=== PATIENT | male | born 1965 | race Caucasian/White ===

== ENCOUNTER 2019-09-28 09:45 | Outpatient (CLI) | payer MEDICARE, SELFPAY ==
[2019-09-28 10:55] LABS: Influenza Control Valid (Valid)
== END 2019-09-28 09:46 | disposition home or self-care (01) ==
PROVIDERS: PCP Family Medicine; Visit Provider Family Medicine
DX: J06.9 Acute upper respiratory infection, unspecified (principal)
CPT/HCPCS: 87081; 87804; 87880

== ENCOUNTER 2020-01-22 08:00 | Outpatient (CLI) | payer MEDICARE, SELFPAY ==
[2020-01-22 08:11] LABS: Basophils Absolute Auto 0.03 K/mm3 (0.00-0.10); Basophils Percent Auto 0.4 % (0.0-1.0); Eosinophils Absolute Auto 0.19 K/mm3 (0.02-0.50); Eosinophils Percent Auto 2.3 % (1.0-6.0); Hematocrit 41.5 % (40.0-54.0); Hemoglobin 13.7 g/dL (14.0-18.0); Immature Granulocyte Absolute 0.05 K/mm3 (0.00-0.00); Immature Granulocyte Percent A 0.6 % (0.0-0.0); Lymphocytes Absolute Auto 1.67 K/mm3 (1.10-4.50); Lymphocytes Percent Auto 20.3 % (18.0-42.0); Mean Corpuscular Hemoglobin 26.6 pg (27.0-31.0); Mean Corpuscular Volume 80.4 fL (78.0-102.0); Mean Platelet Volume 10.1 fl (8.7-11.0); Monocytes Absolute Auto 0.88 K/mm3 (0.10-0.90); Monocytes Percent Auto 10.7 % (2.0-11.0); Neutrophils Absolute Auto 5.4 K/mm3 (1.7-7.2); Neutrophils Percent Auto 65.7 % (50.0-70.0); Platelet Count Result 295 K/mm3 (150-420); Red Blood Count 5.16 M/mm3 (4.70-6.10); Red Cell Distribution Width 15.7 % (11.6-14.4); White Blood Count 8.2 K/mm3 (4.8-10.8)
[2020-01-22 09:05] LABS: Hemoglobin A1C 6.7 % (<5.7)
[2020-01-22 09:19] LABS: Anion Gap 10.7 mmol/L (7-16); Blood Urea Nitrogen 8 mg/dL (7-18); Carbon Dioxide 32 mmol/L (21-32); Chloride 102 mmol/L (98-108); Estimated Glomerular Filt Rate > 60; Glucose 123 mg/dL (70-99); Osmolality Calculated 291 mOsm/kg (285-295); Potassium 3.7 mmol/L (3.5-5.1); Sodium 141 mmol/L (136-145)
== END 2020-01-22 08:01 | disposition home or self-care (01) ==
PROVIDERS: PCP Family Medicine; Visit Provider Family Medicine
DX: I10 Essential (primary) hypertension (principal); E11.319 Type 2 diabetes mellitus with unspecified diabetic retinopathy without macular edema
CPT/HCPCS: 36415; 80048; 83036; 85025

== ENCOUNTER 2022-07-11 15:25 | Outpatient (CLI) | payer MEDICARE, SELFPAY ==
[2022-07-11 16:28] LABS: SARS-CoV-2 RNA PCR Negative (Negative)
== END 2022-07-11 15:26 | disposition home or self-care (01) ==
LOC: CHSLAB 15:31
PROVIDERS: PCP Internal Medicine; Visit Provider Family Medicine
DX: Z20.822 Contact with and (suspected) exposure to COVID-19 (principal)
CPT/HCPCS: U0003; U0005

== ENCOUNTER 2022-08-19 09:16 | Outpatient (CLI) | payer MEDICARE, SELFPAY ==
[2022-08-19 09:35] LABS: Basophils Absolute Auto 0.04 K/mm3 (0.00-0.10); Basophils Percent Auto 0.4 % (0.0-1.0); Eosinophils Absolute Auto 0.18 K/mm3 (0.02-0.50); Eosinophils Percent Auto 1.6 % (1.0-6.0); Hemoglobin 12.9 g/dL (14.0-18.0); Immature Granulocyte Absolute 0.05 K/mm3 (0.00-0.00); Immature Granulocyte Percent A 0.4 % (0.0-0.0); Lymphocytes Absolute Auto 1.75 K/mm3 (1.10-4.50); Lymphocytes Percent Auto 15.4 % (18.0-42.0); Mean Corpuscular HGB Conc 33.9 g/dL (32.0-36.0); Mean Corpuscular Hemoglobin 27.3 pg (27.0-31.0); Mean Corpuscular Volume 80.3 fL (78.0-102.0); Mean Platelet Volume 9.2 fl (8.7-11.0); Monocytes Absolute Auto 1.29 K/mm3 (0.10-0.90); Monocytes Percent Auto 11.3 % (2.0-11.0); Neutrophils Absolute Auto 8.1 K/mm3 (1.7-7.2); Neutrophils Percent Auto 70.9 % (50.0-70.0); Platelet Count Result 338 K/mm3 (150-420); Red Blood Count 4.73 M/mm3 (4.70-6.10); Red Cell Distribution Width 13.5 % (11.6-14.4); White Blood Count 11.4 K/mm3 (4.8-10.8)
[2022-08-19 09:48] LABS: Hemoglobin A1C 6.2 % (<5.7)
[2022-08-19 10:13] LABS: Alanine Aminotransferase 32 U/L (16-63); Albumin Level 3.8 g/dL (3.4-5.0); Alkaline Phosphatase 106 U/L (46-116); Anion Gap 7 mmol/L (8-16); Aspartate Amino Transferase 12 U/L (15-37); Bilirubin,Total 0.4 mg/dL (0.00-1.00); Blood Urea Nitrogen 7 mg/dL (7-18); Carbon Dioxide 30 mmol/L (21-32); Chloride 92 mmol/L (98-108); Cholesterol 63 mg/dL (0-200); Estimated Glomerular Filt Rate > 60; Glucose 125 mg/dL (70-99); HDL Direct 35 mg/dL (40-60); LDL Cholesterol Calculated 15 mg/dL (<130); Osmolality Calculated 267 mOsm/kg (285-295); Potassium 3.7 mmol/L (3.5-5.1); Sodium 129 mmol/L (136-145); Thyroid Stimulating Hormone 0.68 uIU/mL (0.36-3.74); Total Protein 7.4 g/dL (6.4-8.2); Triglycerides 65 mg/dL (0-150)
[2022-08-19 14:01] LABS: Add Urine Microscopic? YES; Appearance Urine Clear (Clear); Bilirubin Urine Negative (Negative); Blood Urine Negative (Negative); Color Urine Light Yellow (Yellow); Glucose Urine UA Negative (Negative); Ketones Urine Negative (Negative); Leukocyte Esterase Ur 2+ (Negative); Nitrate Urine Negative (Negative); Protein Urine Negative (Negative); Urobilinogen Urine 0.2 mg/dL (0.2-1.0)
[2022-08-19 14:15] LABS: Creatinine Urine 18.61 mg/dL (40-278); MALB Creatinine Ratio 69.8 mg/g (0-30); Microalbumin Urine Random < 13.0 mg/L
[2022-08-19 14:22] LABS: Bacteria Urine Trace /hpf; RBC Urine None seen /hpf (0-2); Squamous Epithelial Cell Urine Rare /hpf (Few)
== END 2022-08-19 09:17 | disposition home or self-care (01) ==
LOC: CHSLAB 09:18
PROVIDERS: PCP Family Medicine; Visit Provider Family Medicine
DX: I10 Essential (primary) hypertension (principal); E11.9 Type 2 diabetes mellitus without complications; E78.5 Hyperlipidemia, unspecified
CPT/HCPCS: 36415; 80053; 80061; 81001; 82043; 83036; 84443; 85025

== ENCOUNTER 2024-07-21 08:21 | Emergency (ER) | payer MEDICARE, MEDICAID, SELFPAY ==
[2024-07-21] VITALS (31 sets, daily range): BP systolic 102–132; BP diastolic 54–83; PULSE 67–86; RESP 15–18; TEMP 36.4–36.8; O2SAT 95–100
--- NOTE | ~2024-07-21 | CT_ITS ---
EXAMINATION: CT brain wo con DATE: 07/21/2024 09:22 INDICATION: Dizziness. Fall. TECHNIQUE: Computed tomography (CT) of the head was performed without intravenous contrast. The mA wa s adjusted according to patient size. Iterative reconstruction technique was employed. The dose-lengt h product was 681.00 mGy-cm. COMPARISON: None FINDINGS: There are scattered areas of low attenuation in the cerebral white matter, which is within normal limits for the patient's age. There is no intracranial hemorrhage, acute infarction, or abnorm al intracranial mass lesion. The ventricles are normal in size. There is mild mucosal thickening in t he paranasal sinuses. There are likely changes of ocular lens replacement surgeries. The mastoid air cells are normal. IMPRESSION: 1. Normal aging brain. Reviewed, dictated and finalized at location A. L CLEANER IMPRESSION: 1. Normal aging brain.
--- NOTE | 2024-07-21 08:29 | ED_ITS ---
HPI - Fall General Chief Complaint: Fall Stated Complaint: fall Time Seen by Provider: 07/21/24 08:29 Source: patient and EMS Mode of arrival: EMS Limitations: other (Patient has baseline MR) History of Present Illness HPI Narrative: patient is a 59-year-old male from a senior care with MR was having a bowel movement and got up and became dizzy and fell. No injuries. No chest pain or shortness of breath. No symptoms before the event. MD complaint: fall Onset (ago): hour(s) (1) Fall from: standing Fall witnessed: no Place fall occurred: home Loss of consciousness: none Prolonged down time: no Symptoms prior to fall: lightheadedness and dizziness Context: other ( Patient fell from standing after bowel movement) Location of injury: other ( none) Severity: mild ( No pain) Severity scale (1-10): 1 ( no pain) Quality: other ( no pain) Associated symptoms (after fall): denies Related Data Home Medications Medication Instructions Recorded Confirmed amlodipine 10 mg tablet 10 mg PO DAILY 07/21/24 07/21/24 ascorbic acid (vitamin C) 500 mg 500 mg PO BID 07/21/24 07/21/24 tablet (Vitamin C) aspirin 81 mg chewable tablet 81 mg PO DAILY 07/21/24 07/21/24 atorvastatin 40 mg tablet 40 mg PO DAILY 07/21/24 07/21/24 lisinopril 20 2 tablet PO DAILY 07/21/24 07/21/24 mg-hydrochlorothiazide 12.5 mg tablet metoprolol tartrate 50 mg tablet 50 mg PO DAILY 07/21/24 07/21/24 risperidone 1 mg tablet 1 mg PO BID 07/21/24 07/21/24 Allergies Allergy/AdvReac Type Severity Reaction Status Date / Time No Known Allergies Allergy Verified 07/21/24 08:23 Review of Systems Review of Systems: All systems reviewed & are unremarkable except as noted in HPI and below Constitutional: Constitutional: Reports no additional constitutional complaints Eyes: Eyes: Reports no additional eye complaints ENT: Reports system reviewed and no additional complaints, except as documented Cardiovascular: Cardiovascular: Reports no additional cardiovascular complaints Respiratory: Respiratory: Reports no additional respiratory complaints Gastrointestinal: Gastrointestinal: Reports no additional gastrointestinal complaints Genitourinary: Genitourinary: Reports no additional male genitourinary complaints Musculoskeletal: Musculoskeletal: Reports no additional musculoskeletal complaints Integumentary/Breasts: Skin/Breast: Reports system reviewed and no additional complaints, except as docu Neurologic: Reports system reviewed and no additional complaints, except as documented Psychiatric: Psychiatric: Reports no additional psychiatric complaints Endocrine: Endocrine: Reports no additional endocrine complaints Hematologic/Lymphatic: Hematologic/Lymphatic: Reports no additional hematologic/lymphatic complaints Allergic/Immunologic: Allergic/Immunologic: Reports no additional all ergic/immunologic complaints Exam Const: General: healthy appearing Nutritional Appearance: well nourished Other: baseline mental MR MIGDALIA: Head: normal to inspection Ears: external ears normal Face/Nose/Sinus: Normal external nose present Face and sinus: normal facial exam Mouth: Yes Normal oral and palatal mucosa present Teeth and gingiva: dentition normal Eyes: Conjunctivae: conjunctivae normal Pupils: Equal, round and reactive pupils present EOM: EOMs intact bilaterally Neck: Neck: normal visual inspection Chest: Chest palpation & inspection: normal inspection of the chest Resp: Effort & Inspection: normal respiratory effort and not labored Auscultation: clear to auscultation bilaterally and no crackles Cardio: Rate: regular rate Rhythm: regular rhythm Heart sounds: no murmurs GI: Inspection: non-distended GI Palp: Yes Soft to palpation and No Tenderness to palpation present (GI) Auscultation: normal bowel sounds : General: Yes bladder normal to palpation Back/Spine/Pelvis: Back: no CVA tenderness Skin: General skin exam: normal color Rashes: no rashes Wounds: no wounds Neuro: General: patient oriented x3 Cranial nerves: Yes Nystagmus not present Speech: normal speech Gait exam (Neuro): Normal gait present Other: fast exam negative, NIH score 0, GCS is 15 orthostatic vital signs do show positivity please see nurse's note for values Extrem: General: normal to inspection Psych: Mental Status: mental status grossly normal Affect: normal affect Attitude: cooperative Course Vital Signs Vital signs: Vital Signs Pulse Rate 70 07/21/24 08:25 Blood Pressure 132/78 07/21/24 08:25 Pulse Rate 86 07/21/24 08:27 Blood Pressure 102/56 L 07/21/24 08:27 MDM - Fall MDM Narrative Medical decision making narrative: patient is a 59-year-old male with MR here with a fall from standing after getting dizzy after using the bathroom for a stool. Orthostatic vital signs were positive for abnormality and likely this was a vasovagal event. I will check an EKG and brief workup. Further workup is not necessary this time. No injuries seem or positive through history. There is no chest pain and I will give him a copy of EKG to bring to the primary doctor. workup was negative. it appears the Haldol is over powering the lesser Cogentin level. We will go ahead and increase his Cogentin to 1 mg twice a day now. He is only on a 0.5 mg at bedtime. Lab Data Attestation: I reviewed the patient's lab results. 07/21/24 09:45 07/21/24 09:45 Labs: Lab Results 07/21/24 Range/Units 09:45 WBC 13.9 H (4.8-10.8) K/mm3 RBC 4.05 L (4.70-6.10) M/mm3 Hgb 10.1 L (14.0-18.0) g/dL Hct 30.9 L (40.0-54.0) % MCV 76.3 L (78.0-102.0) fL MCH 24.9 L (27.0-31.0) pg MCHC 32.7 (32-36) g/dL RDW 16.1 H (11.6-14.4) % Plt Count 304 (150-420) K/mm3 MPV 9.6 (8.7-11.0) fl Immature Gran % (Auto) 0.5 H (0.0-0.0) % Neut % (Auto) 80.6 H (50.0-70.0) % Lymph % (Auto) 10.7 L (18.0-42.0) % [place] % (Auto) 7.8 (2.0-11.0) % Eos % (Auto) 0.2 L (1.0-6.0) % Baso % (Auto) 0.2 (0.0-1.0) % Lymph # (Auto) 1.48 (1.10-4.50) K/mm3 [place] # (Auto) 1.09 H (0.10-0.90) K/mm3 Eos # (Auto) 0.03 (0.02-0.50) K/mm3 Baso # (Auto) 0.03 (0.00-0.10) K/mm3 Abs Immat Gran (auto) 0.07 H (0.00-0.00) K/mm3 Absolute Neuts (auto) 11.19 H (1.70-7.20) K/mm3 Absolute Nucleated RBC 0.00 (0.00-0.00) K/mm3 Nucleated RBC % 0.0 (0-0.0) % Sodium 136 (136-145) mmol/L Potassium 4.1 (3.5-5.1) mmol/L Chloride 99 (98-108) mmol/L Carbon Dioxide 30 (21-32) mmol/L Anion Gap 7 (4-12) mmol/L BUN 22 H (7-18) mg/dL Creatinine 0.78 (0.70-1.30) mg/dL Estim Creat Clear Calc 98 ml/min Estimated GFR > 60 (59 - ) Glucose 166 H (70-99) mg/dL Calculated Osmolality 289 (285-295) mOsm/kg Calcium 9.0 (8.5-10.1) mg/dL Total Bilirubin 0.4 (0.00-1.00) mg/dL AST 13 L (15-37) U/L ALT 31 (16-63) U/L Alkaline Phosphatase 116 (46-116) U/L Troponin I 9.4 (0.00-60.4) ng/L Total Protein 7.5 (6.4-8.2) g/dL Albumin 3.5 (3.4-5.0) g/dL Imaging Data Attestation: I personally reviewed and interpreted this imaging study as follows: Radiologist's impression: CT scan of the brain was negative for acute process ECG Data EKG #1: Attestation: I personally reviewed and interpreted this ECG as follows: ECG completion date: 07/21/24 ECG completion time: 08:59 EKG Interpretation: normal rate, sinus rhythm, no ectopy, non-specific ST changes, normal QRS, normal QT and NL axis Discharge Plan Discharge Clinical Impression: Vasovagal episode Fall Qualifiers: Encounter type: initial encounter Qualified Code(s): W19.XXXA - Unspecified fall, initial encounter Patient Disposition: Home, Self-Care Condition: Stable Instructions: Hypotension (ED) Additional Instructions: Please follow-up with primary doctor in the next week. Please have a primary doctor review the EKG to consider further outpatient workup. Prescriptions: No Action atorvastatin 40 mg tablet 40 mg PO DAILY lisinopril-hydrochlorothiazide 20-12.5 mg tablet 2 tablet PO DAILY ascorbic acid (vitamin C) [Vitamin C] 500 mg tablet 500 mg PO BID amlodipine 10 mg tablet 10 mg PO DAILY metoprolol tartrate 50 mg tablet 50 mg PO DAILY aspirin 81 mg tablet,chewable 81 mg PO DAILY risperidone 1 mg tablet 1 mg PO BID Follow-up/Referrals: Carlos Manuel Mayorga MD [Primary Care Provider] - Time of Disposition: 10:19
--- NOTE | 2024-07-21 08:40 | ECG_ITS ---
Test Date: 2024-07-21 08:54:40 Measurements Intervals [place] Rate: 68 P: 49 SD: 174 QRS: 42 QRSD: 88 T: 33 QT: 388 QTc: 413 Interpretive Statements SINUS RHYTHM No previous ECG available for comparison Electronically Signed On 07-22-2024 20:16:29 [employer]HER[employer] NURSE by Jesse Veras M.D.
[2024-07-21 09:51] LABS: Basophils Absolute Auto 0.03 K/mm3 (0.00-0.10); Basophils Percent Auto 0.2 % (0.0-1.0); Eosinophils Absolute Auto 0.03 K/mm3 (0.02-0.50); Eosinophils Percent Auto 0.2 % (1.0-6.0); Hematocrit 30.9 % (40.0-54.0); Hemoglobin 10.1 g/dL (14.0-18.0); Immature Granulocyte Absolute 0.07 K/mm3 (0.00-0.00); Immature Granulocyte Percent A 0.5 % (0.0-0.0); Lymphocytes Absolute Auto 1.48 K/mm3 (1.10-4.50); Lymphocytes Percent Auto 10.7 % (18.0-42.0); Mean Corpuscular HGB Conc 32.7 g/dL (32-36); Mean Corpuscular Hemoglobin 24.9 pg (27.0-31.0); Mean Corpuscular Volume 76.3 fL (78.0-102.0); Mean Platelet Volume 9.6 fl (8.7-11.0); Monocytes Absolute Auto 1.09 K/mm3 (0.10-0.90); Monocytes Percent Auto 7.8 % (2.0-11.0); Neutrophils Absolute Auto 11.19 K/mm3 (1.70-7.20); Neutrophils Percent Auto 80.6 % (50.0-70.0); Platelet Count Result 304 K/mm3 (150-420); Red Blood Count 4.05 M/mm3 (4.70-6.10); Red Cell Distribution Width 16.1 % (11.6-14.4); White Blood Count 13.9 K/mm3 (4.8-10.8)
[2024-07-21 10:09] LABS: Alanine Aminotransferase 31 U/L (16-63); Albumin Level 3.5 g/dL (3.4-5.0); Alkaline Phosphatase 116 U/L (46-116); Anion Gap 7 mmol/L (4-12); Aspartate Amino Transferase 13 U/L (15-37); Bilirubin,Total 0.4 mg/dL (0.00-1.00); Blood Urea Nitrogen 22 mg/dL (7-18); Carbon Dioxide 30 mmol/L (21-32); Chloride 99 mmol/L (98-108); Estimated CRCL calculation 98 ml/min; Estimated Glomerular Filt Rate > 60; Glucose 166 mg/dL (70-99); Osmolality Calculated 289 mOsm/kg (285-295); Potassium 4.1 mmol/L (3.5-5.1); Sodium 136 mmol/L (136-145); Total Protein 7.5 g/dL (6.4-8.2); Troponin I 9.4 ng/L (0.00-60.4)
--- NOTE | 2024-07-21 10:10 | PC.NURSE ---
Patient taken down to use the bathroom. Blood found in toilet after patient done, ERP made aware.
[2024-07-21 11:07] LABS: Partial Thromboplastin Time 24.8 Sec (23.9-30.70); Prothrombin Time 11.4 Seconds (9.50-12.1)
[2024-07-21] MEDS: PANTOPRAZOLE SODIUM IV 40 MG VIAL 80 MG IV PUSH (12:03)
--- NOTE | 2024-07-21 12:33 | ED_ITS ---
HPI - Extremity Injury (Lower) General Chief Complaint: Fall Stated Complaint: fall Time Seen by Provider: 07/21/24 08:29 Source: patient and EMS Mode of arrival: EMS Limitations: other (Patient has baseline MR) History of Present Illness HPI Narrative: error Severity: mild ( No pain) Related Data Home Medications Medication Instructions Recorded Confirmed amlodipine 10 mg tablet 10 mg PO DAILY 07/21/24 07/21/24 ascorbic acid (vitamin C) 500 mg 500 mg PO BID 07/21/24 07/21/24 tablet (Vitamin C) aspirin 81 mg chewable tablet 81 mg PO DAILY 07/21/24 07/21/24 atorvastatin 40 mg tablet 40 mg PO DAILY 07/21/24 07/21/24 lisinopril 20 2 tablet PO DAILY 07/21/24 07/21/24 mg-hydrochlorothiazide 12.5 mg tablet metoprolol tartrate 50 mg tablet 50 mg PO DAILY 07/21/24 07/21/24 risperidone 1 mg tablet 1 mg PO BID 07/21/24 07/21/24 Allergies Allergy/AdvReac Type Severity Reaction Status Date / Time No Known Allergies Allergy Verified 07/21/24 08:23 Course Vital Signs Vital signs: Vital Signs Temperature 36.6 C 07/21/24 08:21 Pulse Rate 74 07/21/24 08:21 Respiratory Rate 18 07/21/24 08:21 Blood Pressure 120/66 07/21/24 08:21 Pulse Oximetry 98 07/21/24 08:21 Oxygen Delivery Autopap 07/21/24 08:21 Temperature 36.4 C 07/21/24 10:28 Pulse Rate 78 07/21/24 11:30 Respiratory Rate 16 07/21/24 11:30 Blood Pressure 111/54 L 07/21/24 11:30 Pulse Oximetry 97 07/21/24 11:30 Oxygen Delivery Room Air 07/21/24 11:00 MDM - Extremity Injury (Lower) Lab Data 07/21/24 09:45 07/21/24 09:45 Labs: Lab Results 07/21/24 07/21/24 Range/Units 09:45 10:38 WBC 13.9 H (4.8-10.8) K/mm3 RBC 4.05 L (4.70-6.10) M/mm3 Hgb 10.1 L (14.0-18.0) g/dL Hct 30.9 L (40.0-54.0) % MCV 76.3 L (78.0-102.0) fL MCH 24.9 L (27.0-31.0) pg MCHC 32.7 (32-36) g/dL RDW 16.1 H (11.6-14.4) % Plt Count 304 (150-420) K/mm3 MPV 9.6 (8.7-11.0) fl Immature Gran % (Auto) 0.5 H (0.0-0.0) % Neut % (Auto) 80.6 H (50.0-70.0) % Lymph % (Auto) 10.7 L (18.0-42.0) % [place] % (Auto) 7.8 (2.0-11.0) % Eos % (Auto) 0.2 L (1.0-6.0) % Baso % (Auto) 0.2 (0.0-1.0) % Lymph # (Auto) 1.48 (1.10-4.50) K/mm3 [place] # (Auto) 1.09 H (0.10-0.90) K/mm3 Eos # (Auto) 0.03 (0.02-0.50) K/mm3 Baso # (Auto) 0.03 (0.00-0.10) K/mm3 Abs Immat Gran (auto) 0.07 H (0.00-0.00) K/mm3 Absolute Neuts (auto) 11.19 H (1.70-7.20) K/mm3 Absolute Nucleated RBC 0.00 (0.00-0.00) K/mm3 Nucleated RBC % 0.0 (0-0.0) % PT 11.4 (9.50-12.1) Seconds INR 1.0 APTT 24.8 (23.9-30.70) Sec Sodium 136 (136-145) mmol/L Potassium 4.1 (3.5-5.1) mmol/L Chloride 99 (98-108) mmol/L Carbon Dioxide 30 (21-32) mmol/L Anion Gap 7 (4-12) mmol/L BUN 22 H (7-18) mg/dL Creatinine 0.78 (0.70-1.30) mg/dL Estim Creat Clear Calc 98 ml/min Estimated GFR > 60 (59 - ) Glucose 166 H (70-99) mg/dL Calculated Osmolality 289 (285-295) mOsm/kg Calcium 9.0 (8.5-10.1) mg/dL Total Bilirubin 0.4 (0.00-1.00) mg/dL AST 13 L (15-37) U/L ALT 31 (16-63) U/L Alkaline Phosphatase 116 (46-116) U/L Troponin I 9.4 (0.00-60.4) ng/L Total Protein 7.5 (6.4-8.2) g/dL Albumin 3.5 (3.4-5.0) g/dL Discharge Plan Discharge Clinical Impression: Acute GI bleeding, Vasovagal episode Fall Qualifiers: Encounter type: initial encounter Qualified Code(s): W19.XXXA - Unspecified f all, initial encounter Patient Disposition: Acute Care Hospital Condition: Stable Prescriptions: No Action atorvastatin 40 mg tablet 40 mg PO DAILY lisinopril-hydrochlorothiazide 20-12.5 mg tablet 2 tablet PO DAILY ascorbic acid (vitamin C) [Vitamin C] 500 mg tablet 500 mg PO BID amlodipine 10 mg tablet 10 mg PO DAILY metoprolol tartrate 50 mg tablet 50 mg PO DAILY aspirin 81 mg tablet,chewable 81 mg PO DAILY risperidone 1 mg tablet 1 mg PO BID Follow-up/Referrals: Carlos Manuel Mayorga MD [Primary Care Provider] -
== END 2024-07-21 13:55 | disposition short-term general hospital (02) ==
PROVIDERS: Emergency Provider Emergency Medicine; PCP Family Medicine
DX: R55 Syncope and collapse (principal); K92.1 Melena; Z79.899 Other long term (current) drug therapy; Z79.82 Long term (current) use of aspirin; W19.XXXA Unspecified fall, initial encounter
CPT/HCPCS: 36415; 70450; 80053; 84484; 85025; 85610; 85730; 93005; 96374; 99285; J2470

== ENCOUNTER 2025-07-17 10:49 | Outpatient (CLI) | payer MEDICARE, MEDICAID, SELFPAY ==
[2025-07-17 11:06] LABS: Hematocrit 45.5 % (40.0-54.0); Hemoglobin 15.4 g/dL (14.0-18.0); Immature Granulocyte Percent A 0.6 % (0.0-0.0); Lymphocytes Absolute Auto 1.90 K/mm3 (1.10-4.50); Mean Corpuscular HGB Conc 33.8 g/dL (32-36); Mean Corpuscular Hemoglobin 29.8 pg (27.0-31.0); Mean Corpuscular Volume 88.2 fL (78.0-102.0); Nucleated Red Blood Cells Absolute Auto 0.00 K/mm3 (0.00-0.00); Nucleated Red Blood Cells Perc 0.0 % (0-0.0); Platelet Count Result 229 K/mm3 (150-420); Red Blood Count 5.16 M/mm3 (4.70-6.10); White Blood Count 9.9 K/mm3 (4.8-10.8)
[2025-07-17 11:24] LABS: Hemoglobin A1C 5.8 % (<5.7)
[2025-07-17 11:29] LABS: Iron 120 ug/dL (49-181)
[2025-07-17 11:30] LABS: Alanine Aminotransferase 52 U/L (6-50); Albumin Level 4.5 g/dL (3.5-5.1); Alkaline Phosphatase 99 U/L (38-126); Anion Gap 8 mmol/L (4-12); Aspartate Amino Transferase 30 U/L (17-59); Bilirubin,Total 0.4 mg/dL (0.2-1.3); Blood Urea Nitrogen 12 mg/dL (9-20); Calcium 9.2 mg/dL (8.4-10.2); Carbon Dioxide 31 mmol/L (22-30); Chloride 104 mmol/L (98-107); Cholesterol 85 mg/dL (0-200); Estimated Glomerular Filt Rate > 60; Glucose 103 mg/dL (65-110); HDL Direct 36 mg/dL; Osmolality Calculated 295 mOsm/kg (285-295); Potassium 4.0 mmol/L (3.4-5.0); Sodium 143 mmol/L (137-145); Total Protein 7.3 g/dL (6.3-8.2); Triglycerides 130 mg/dL (<150)
[2025-07-17 11:39] LABS: Percent Iron Saturation 42 % (20-50)
[2025-07-17 12:06] LABS: Ferritin 28.40 ng/mL (11.1-264)
--- OUTSIDE RECORDS SUMMARY | 2025-07-17 12:10 | XMS_ITS | Patient Health Record ---
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 Name Role Phone Gabi Soni Unavailable [phone] Reason For Referral No Information Medications Medication SIG (Take, Route, Frequency, Duration) Notes Start Date End Date Status risperiDONE 1 MG Tablet Oral 11/04/2022 Active risperiDONE 0.5 MG Tablet Oral 11/04/2022 Active RisperDAL 1 MG Tablet Oral 11/04/2022 Active RisperDAL 0.5 MG Tablet Oral 11/04/2022 Active Metoprolol Tartrate 50 MG Tablet Oral 11/04/2022 Active Ofloxacin 0.30% Solution Ophthalmic 11/04/2022 Active Ketorolac Tromethamine 0.5 % Solution Ophthalmic 11/04/2022 Active prednisoLONE Acetate 1 % Suspension Ophthalmic 11/04/2022 Active Vitamin C 500 mg Tablet Oral 11/04/2022 Active amLODIPine Besylate 10 MG Tablet Oral 11/04/2022 Active metFORMIN HCl 500 MG Tablet Oral 11/04/2022 Active Acetaminophen 325 MG Tablet Oral 11/04/2022 Active Stomach Relief 262 mg/15 mL Suspension Oral 11/04/2022 Active Atorvastatin Calcium 40 MG Tablet Oral 11/04/2022 Active Aspirin 81 MG Tablet Chewable Oral 11/04/2022 Active Lisinopril-hydroCHLOROthiazi de 20-12.5 MG Tablet Oral 11/04/2022 Active Immunizations Vaccine Route Administration Date Status Comme nts Influenza virus vaccine, quadrivalent (IIV4), split virus, 0.25 mL dosage Unknown 05/29/2018 Administered Social History Social History Additional Details Category Social Info Options Details Migrated Social History Migrated Social History Alcohol Intake: None 08/28/2018,Tobacco Years: Never smoker 07/16/2018 Plan Of Treatment No Information Insurance Providers Payer Name Payer Address Payer Phone Subscriber Number Group Number Insured Name Patient Relationship to Insured Coverage Start Date Coverage End Date Medicare-I l Medicare [address] [place] [phone] [id number] LEFTY LOPEZ Self - patient is the insured [place] Medicaid [address] [address] [place] [address] [id number] LEFTY LOPEZ Self - patient is the insured
== END 2025-07-17 10:50 | disposition home or self-care (01) ==
PROVIDERS: PCP Family Medicine; Visit Provider Family Medicine
DX: I10 Essential (primary) hypertension (principal); E11.9 Type 2 diabetes mellitus without complications; D64.9 Anemia, unspecified; E61.1 Iron deficiency; E78.2 Mixed hyperlipidemia
CPT/HCPCS: 36415; 80053; 80061; 82728; 83036; 83540; 83550; 85025